=== PATIENT | female | born 1955 | race Caucasian/White ===

== ENCOUNTER 2019-07-23 05:36 | Outpatient (CLI) | payer OTHER ==
[~2019-07-23] VITALS: Ht 165.1 cm; Wt 95.3 kg
[2019-07-24] MEDS ORDERED: LEVO150T6 PO (09:00)
[2019-07-24] MEDS ORDERED: ESTR1TAB24 PO (09:00)
[2019-07-24] MEDS ORDERED: LOVA20TA2 PO (09:00)
== END 2019-07-23 16:00 | disposition home or self-care (01) ==
LOC: PREOP 05:36
PROVIDERS: ATTEND Orthopaedic Surgery
DX: Z01.818 Encounter for other preprocedural examination (principal)

== ENCOUNTER 2019-07-25 08:22 | Day surgery (SDC) | payer OTHER ==
--- NOTE | 2019-07-17 14:24 | HISTORY AND PHYSICAL ---
DATE OF SERVICE: ADMISSION HISTORY AND PHYSICAL DATE OF ADMISSION: 07/25/2019. This will be for outpatient surgery on 07/25/2019, for left knee arthroscopy. HISTORY OF PRESENT ILLNESS: The patient is a 63-year-old female with progressively worsening left knee pain, swelling and popping. She reports pain with long periods where she sits with her knee flexed. She reports pain on the anterior medial aspect of her knee. She denies giving way. She has been treated with rest, ice, activity modifications, anti-inflammatories as well as injections with minimal benefit. Due to progressive symptoms, the patient has elected to proceed with surgical intervention. Radiographs do note some moderate degenerative change of the medial compartment. She understands that arthroscopy will not alleviate her arthritic symptoms, but can help with her mechanical symptoms. REVIEW OF SYSTEMS: No chest pain, no shortness of breath, no dysuria. PAST MEDICAL HISTORY: Hyperlipidemia, hypothyroidism, psoriasis. PRIMARY CARE PROVIDER: Dr. Clemens. MEDICATIONS: 1. Nystatin. 2. Estradiol. 3. Lovastatin. 4. Niacin. 5. Ibuprofen. 6. Levothyroxine. 7. Betamethasone. ALLERGIES: No known drug allergies. SOCIAL HISTORY: The patient drinks alcohol socially. Denies tobacco use. PHYSICAL EXAMINATION: GENERAL: The patient is well developed, well-nourished, in no acute distress. HEENT: Normocephalic, atraumatic. Pupils are equal, round, reactive to light. Oropharynx is clear. NECK: Supple, no lymphadenopathy. LUNGS: Clear to auscultation bilaterally. HEART: Regular rate and rhythm. ABDOMEN: Soft, nontender, nondistended. EXTREMITIES: Left knee demonstrates moderate effusions, tender along the medial joint line. She has pain medially with Beatrice's. There is no varus valgus laxity. Negative anterior and posterior drawer. She is tender along the medial femoral condyle as well. 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 PLAN: Left knee arthroscopy, partial medial meniscectomy and chondroplasty. The risks, benefits, options, ramifications and recovery have been discussed at length with the patient. She understands and wishes to proceed. Job ID: [id number] DocumentID: [id number] Dictated Date: 07/17/2019 13:03:05 Tax Compliance Agent Date: 07/17/2019 14:23:36 Dictated By: LILIANE HAMILTON MD
[~2019-07-25] VITALS: Ht 165.1 cm; Wt 95.3 kg
[2019-07-25] VITALS (11 sets, daily range): BP systolic 122–164; BP diastolic 74–98
[~2019-07-25 08:22] MED LIST: ESTR1TAB24 PO; LEVO150T6 PO; LOVA20TA2 PO
--- NOTE | 2019-07-25 08:29 | Progress Note-Pre Operative ---
Pre-Operative Progress Note H&P Reviewed The H&P was reviewed, patient examined and no changes noted. Date Seen by Provider: Jul 25, 2019 Time Seen by Provider: 08:28 Date H&P Reviewed: Jul 25, 2019 Time H&P Reviewed: 08:28 Pre-Operative Diagnosis: left knee medial meniscus tear and chondromalacia LILIANE HAMILTON MD Jul 25, 2019 08:29
--- NOTE | 2019-07-25 08:30 | Progress Note-Post Operative ---
Post-Operative Progess Note Surgeon (s)/Fund Accountant (s) Surgeon LILIANE HAMILTON MD Fund Accountant: Jerson Damian Pre-Operative Diagnosis left knee medial meniscus tear and chondromalacia Post-Operative Diagnosis left knee medial meniscus tear and chondromalacia of the medial femoral condyle and patella Procedure & Operative Findings Date of Procedure 07/25/19 Procedure Performed/Findings left knee arthroscopic partial medial meniscectomy and chondroplasty of the medial femoral condyle and patella Anesthesia Type GETA Estimated Blood Loss Estimated blood loss (mL): minimal Specimens/Packing Specimens Removed none Packing: none LILIANE HAMILTON MD Jul 25, 2019 08:30
[2019-07-25] MEDS ORDERED: ceFAZolin INJECTION 1,000 MG in WATER (STERILE) FOR INJECTION 10 ML IV ONE (08:45)
[2019-07-25] MEDS ORDERED: morphine PF (DURAMORPH) 10 MG/10 ML AMP ONE (08:51)
[2019-07-25] MEDS ORDERED: BUPIVACAINE 0.25% 30 ML (SENSORCAINE) VIAL ONE (08:51)
[2019-07-25] MEDS: LACTATED RINGERS 1,000 ML IV PRN ×2 (09:00→11:00)
[2019-07-25] MEDS ORDERED: HYDROcodone/APAP 7.5 MG/325 MG (LORTAB, LORCET PLUS) TABLET PO PRN (09:00)
[2019-07-25] MEDS ORDERED: fentaNYL INJECTION 100 MCG/2 ML AMP ONE (10:19)
[2019-07-25] MEDS ORDERED: MIDAZOLAM 2 MG/2 ML (VERSED) VIAL ONE (10:20)
[2019-07-25] MEDS ORDERED: LIDOCAINE PF 2% 5 ML (XYLOCAINE) VIAL ONE (10:48)
[2019-07-25] MEDS ORDERED: proPOfol 200 MG/20 ML (DIPRIVAN) VIAL IV ONE (10:48)
[2019-07-25] MEDS ORDERED: ONDANSETRON 4 MG/2 ML (SDV) Z0FRAN ONE (10:48)
[2019-07-25] MEDS ORDERED: DEXAMETHASONE 10 MG/ML (DECADRON) 1 ML VIAL ONE (10:48)
[2019-07-25] MEDS ORDERED: SEVOFLURANE (ULTANE) 15 ML INHAL SOLN ONE ×3 (10:48)
[2019-07-25] MEDS ORDERED: morphine INJ 10 MG/ML 1ML (SYR OR VIAL) ONE (11:18)
[2019-07-25] MEDS ORDERED: morphine INJ 10 MG/ML 1ML (SYR OR VIAL) IVP ONE (11:30)
[2019-07-25] MEDS ORDERED: ONDANSETRON 4 MG/2 ML (SDV) Z0FRAN IVP PRN (11:30)
--- NOTE | 2019-07-25 11:46 | Anesthesia-General Post-Op ---
General Patient Condition Mental Status/LOC: Same as Preop Cardiovascular: Satisfactory Nausea/Vomiting: Absent Respiratory: Satisfactory Pain: Controlled Complications: Absent Post Op Complications Complications None Follow Up Care/Instructions Patient Instructions None needed. Anesthesia/Patient Condition Patient Condition Patient is doing well, no complaints, stable vital signs, no apparent adverse anesthesia problems. No complications reported per nursing. GONZÁLEZ LALA CRNA Jul 25, 2019 11:46
--- NOTE | 2019-07-25 13:24 | Physical Therapy Ortho Eval ---
PT Orthopedic Evaluation Type of Surgery Knee Scope left side Prior Level of Function Current Living Status: Other Family Locomotion (Upon Admit): Independent Subjective Subjective Patient in bed pre tx, agrees to PT, has no complaints of pain at rest. Entry Into Home: Stairs With Railing Steps Into Home: 2 Steps Accessories: Railing Present Motor Control Motor Control: Motor Control WNL ROM left knee extension +2 degrees, flexion 70 degrees Transfer Transfers (B, C, W/C) (FIM): 7 Gait Gait Assistive Device: None Left Lower Extremity: Left Weight Bearing Status LLE: Weight Bearing/Tolerated Gait (FIM): 7 Distance: 200' Gait Level of Assist: 6 Summary/Comments Patient has a slight limp but otherwise ambulates independently. Patient also went up and down 1 step without an assistive device with SBA and cues for foot placement. Treatment Rendered Treatment: Therapeutic Exercises, Gait Train, Step Train Exercise Instruction: Quad Sets, Heel Slides, Ankle Pumps Assessment/Goals Goal Time Frame: 1 Visit Understands HEP: Yes Safe Ambulation: Yes Plan Treatment Plan: Discharge PT/Family Agrees to Plan: Yes Time Time In: 1305 Time Out: 1320 Total Billed Treatment Time: 15 Billed Treatment Time 1 visit EVL 15' DEAN MOSS PT Jul 25, 2019 13:24
--- NOTE | 2019-07-25 19:29 | OPERATIVE REPORT ---
DATE OF SERVICE: 07/25/2019 PREOPERATIVE DIAGNOSES: 1. Left knee medial meniscus tear. 2. Left knee chondromalacia of the medial femoral condyle. POSTOPERATIVE DIAGNOSES: 1. Left knee medial meniscus tear. 2. Left knee chondromalacia of the medial femoral condyle. 3. Left knee chondromalacia of the patella. PROCEDURES: 1. Left knee arthroscopic partial medial meniscectomy. 2. Left knee arthroscopic chondroplasty medial femoral condyle. 3. Left knee arthroscopic chondroplasty of the patella. SURGEON: Herbert Hamilton MD NETWORKING ADMINISTRATOR: ROB Flor, who assisted throughout the procedure and closed the incisions. ANESTHESIA: General endotracheal by Kayla Rivas CRNA. TOURNIQUET TIME: Not applicable. ESTIMATED BLOOD LOSS: Minimal. DRAINS: None. COMPLICATIONS: None. POSTOPERATIVE PLAN: Routine arthroscopy protocol. The patient was transferred to the recovery room awake and in stable condition. STATEMENT OF MEDICAL NECESSITY: The patient is a 63-year-old female with progressively worsening left medial knee pain, catching, locking and swelling. Radiographs did reveal moderate degenerative changes of her medial and patellofemoral compartments. The patient was tender along the medial joint line, it was felt to likely have a medial meniscus tear. She understands that arthroscopy would not alleviate her arthritic symptoms, but could help with her mechanical symptoms, which included catching and locking as well as swelling. PROCEDURE: After risks and benefits of procedure were discussed and questions were answered, an informed consent was signed and placed on chart. The operative site was confirmed in the preoperative holding area initialed by the surgeon. The patient was transferred to the operating room and after adequate levels of general endotracheal anesthetic were obtained, a timeout was called, confirming the operative site and examination under anesthesia was performed, which revealed range of motion of 0/2/130 with negative Indira, negative anterior and posterior drawer. No varus valgus laxity, negative pivot shift. The left lower extremity was prepped and draped in the usual sterile fashion. Knee joint was injected with 60 mL of fluid and a standard inferolateral portal was placed with the arthroscope under direct visualization, inferior medial portal was created. The menisci and cruciates carefully probed. The undersurface patella demonstrated grade III chondral flaps in the central area approximately 20 x 15 mm in size. The trochlea demonstrated grade I chondral softening with no unstable chondral flaps. The medial and lateral gutters were clear. The lateral compartment demonstrated no significant meniscal or chondral pathology. The ACL and PCL were intact. The medial compartment demonstrated grade IV chondral changes on the medial aspect of the tibial plateau and femoral condyle and adjacent 5 x 12 areas. In addition, there were grade III chondral flaps at the periphery of this lesion on the femoral condyle. The medial meniscus demonstrated complex tear of the posterior horn and body involving approximately 1/2 posterior horn and body. The undersurface of the patella was debrided with the unstable chondral flaps. The scope was redirected into the medial compartment where the unstable chondral flaps in the medial femoral condyle and the unstable medial meniscus tear were debrided back to a stable edge. The meniscus was carefully probed with no further tearing or instability noted. The knee joint was copiously irrigated. The portal sites were closed with 4-0 nylon in aseptic fashion. The knee was injected with Duramorph. The portal sites were infiltrated with plain Marcaine. A soft dressing was applied and the patient was transferred to the recovery room awake and in stable condition. Job ID: [id number] DocumentID: [id number] Dictated Date: 07/25/2019 11:06:02 Respite Care Provider Date: 07/25/2019 19:29:04 Dictated By: HERBERT HAMILTON MD
== END 2019-07-25 13:24 | disposition home or self-care (01) ==
LOC: SDC 08:22
PROVIDERS: ATTEND Orthopaedic Surgery
DX: M23.222 Derangement of posterior horn of medial meniscus due to old tear or injury, left knee (principal); M94.262 Chondromalacia, left knee; E78.5 Hyperlipidemia, unspecified; E03.9 Hypothyroidism, unspecified; L40.9 Psoriasis, unspecified; Z87.891 Personal history of nicotine dependence; Z79.899 Other long term (current) drug therapy; Z79.52 Long term (current) use of systemic steroids
CPT/HCPCS: 87081

== ENCOUNTER 2019-09-17 14:30 | Outpatient (RCR) | payer OTHER | END 2019-09-19 | disposition home or self-care (01) | PROVIDERS: ATTEND Nurse Practitioner | DX: M17.12 Unilateral primary osteoarthritis, left knee (principal) ==

== ENCOUNTER 2019-09-20 13:54 | Outpatient (RCR) | payer OTHER | END 2019-09-20 14:31 | disposition home or self-care (01) | PROVIDERS: ATTEND Nurse Practitioner | DX: M17.12 Unilateral primary osteoarthritis, left knee (principal) ==

== ENCOUNTER 2019-12-03 09:26 | Outpatient (CLI) | payer OTHER ==
[~2019-12-03] VITALS: Ht 165 cm; Wt 97.5 kg
[2019-12-03] MEDS ORDERED: NIAC500T24 PO (09:48)
[2019-12-03] MEDS ORDERED: OMEG10005 PO (09:48)
[2019-12-03 09:50] VITALS: BP 138/84
[2019-12-03 10:16] LABS: BASOPHILS % (AUTO) 0 % (0-10); EOSINOPHILS # (AUTO) 0.5 10^3/uL (0.0-0.3); EOSINOPHILS % (AUTO) 6 % (0-10); HEMATOCRIT 37 % (35-52); HEMOGLOBIN 12.1 G/DL (11.5-16.0); LYMPHOCYTES # (AUTO) 1.9 X 10^3 (1.0-4.0); LYMPHOCYTES % (AUTO) 25 % (12-44); MEAN CORPUSCULAR HEMOGLOBIN 29 PG (25-34); MEAN CORPUSCULAR HGB CONC 33 G/DL (32-36); MEAN CORPUSCULAR VOLUME 89 FL (80-99); MEAN PLATELET VOLUME 9.6 FL (7.4-10.4); MONOCYTES # (AUTO) 0.5 X 10^3 (0.0-1.0); MONOCYTES % (AUTO) 7 % (0-12); NEUTROPHILS # (AUTO) 4.6 X 10^3 (1.8-7.8); NEUTROPHILS % (AUTO) 61 % (42-75); PLATELET COUNT 303 10^3/uL (130-400); WHITE BLOOD COUNT 7.4 10^3/uL (4.3-11.0)
[2019-12-03 10:20] LABS: BILIRUBIN,URINE NEGATIVE (NEGATIVE); CLARITY,URINE CLEAR; COLOR,URINE YELLOW; GLUCOSE, URINE (UA) NEGATIVE (NEGATIVE); KETONES,URINE NEGATIVE (NEGATIVE); LEUKOCYTE ESTERASE ,URINE NEGATIVE (NEGATIVE); NITRITE,URINE NEGATIVE (NEGATIVE); PROTEIN,URINE NEGATIVE (NEGATIVE)
[2019-12-03 10:28] LABS: BACTERIA,URINE TRACE /HPF; PROTHROMBIN TIME PATIENT 13.4 SEC (12.2-14.7); SQUAMOUS EPITHELIAL CELL,UR RARE /HPF
[2019-12-03 10:34] LABS: ALANINE AMINOTRANSFERASE 12 U/L (0-55); ALBUMIN 4.2 GM/DL (3.2-4.5); ALKALINE PHOSPHATASE 71 U/L (40-136); BILIRUBIN,TOTAL 0.4 MG/DL (0.1-1.0); BUN/CREATININE RATIO 20; CARBON DIOXIDE 22 MMOL/L (21-32); CHLORIDE 107 MMOL/L (98-107); GFR ESTIMATED > 60; GLUCOSE 165 MG/DL (70-105); POTASSIUM 3.7 MMOL/L (3.6-5.0); SODIUM 139 MMOL/L (135-145); TOTAL PROTEIN 6.9 GM/DL (6.4-8.2)
[2019-12-03 10:51] LABS: ERYTHROCYTE SEDIMENTATION RATE 14 MM/HR (0-30)
--- NOTE | 2019-12-03 11:19 | Diagnostic Imaging Report ---
INDICATION: Preop for knee replacement. TIME OF EXAM: 10:28 AM No prior studies are available for comparison. The heart size is normal. The pulmonary vascularity is unremarkable. The lungs are clear. No infiltrate, effusion or pneumothorax is detected. IMPRESSION: No acute cardiopulmonary process is detected. Dictated by: Dictated on workstation # [id number]
== END 2019-12-03 15:00 | disposition home or self-care (01) ==
LOC: PREOP 09:26
PROVIDERS: ATTEND Orthopaedic Surgery
DX: Z01.818 Encounter for other preprocedural examination (principal); M17.12 Unilateral primary osteoarthritis, left knee; R53.83 Other fatigue
CPT/HCPCS: 36415; 71046; 80053; 81000; 85025; 85610; 85652; 86850; 86900; 86901; 87081; 93005

== ENCOUNTER 2019-12-12 07:31 | Inpatient (IN) | payer OTHER ==
--- NOTE | 2019-12-04 08:45 | HISTORY AND PHYSICAL ---
DATE OF SERVICE: Date of service, date of surgery, date of admission will be 12/12/2019 for left total knee arthroplasty. The patient will require regular inpatient admission due to comorbidities, pain management, gait abnormalities and weakness. HISTORY OF PRESENT ILLNESS: The patient is a 63-year-old female with longstanding progressive left knee pain. She has undergone treatment with multiple injections as well as arthroscopy without relief. She has known grade IV chondral loss in her medial and patellofemoral compartments with significant degenerative changes of the lateral compartment. Due to functional impairment and failure to improve with conservative measures, the patient elected to proceed with surgical intervention. REVIEW OF SYSTEMS: No chest pain, no shortness of breath, no dysuria. PAST MEDICAL HISTORY: Hyperlipidemia, hypothyroidism, psoriasis. PAST SURGICAL HISTORY: Left knee arthroscopy. FAMILY HISTORY: Significant for congestive heart failure. PRIMARY CARE PROVIDER: Dr. Clemens. MEDICATIONS: Nystatin, estradiol, lovastatin, niacin, ibuprofen, levothyroxine, betamethasone, hydrocodone. ALLERGIES: No known drug allergies. SOCIAL HISTORY: The patient denies tobacco use. Drinks alcohol socially. PHYSICAL EXAMINATION: GENERAL: The patient is well-developed, well-nourished, in no acute distress. HEENT: Normocephalic, atraumatic. Pupils are equal, round and reactive to light. Oropharynx is clear. NECK: Supple, no lymphadenopathy. LUNGS: Clear to auscultation bilaterally. HEART: Regular rate and rhythm. ABDOMEN: Soft, nontender, nondistended. EXTREMITIES: The left knee demonstrates a slight effusion. There is no erythema or warmth. She ambulates with an antalgic gait. Range of motion is 0/2/120. There is no varus valgus laxity. Negative anterior and posterior drawer. She is tender along the medial femoral condyle and has pain medially with Beatrice's. IMPRESSION: Severe left knee osteoarthritis, unresponsive to conservative measures. PLAN: Left total knee arthroplasty. The risks, benefits, options, ramifications and recovery were discussed at length with the patient. She understands and wishes to proceed. Job ID: [id number] DocumentID: [id number] Dictated Date: 11/22/2019 11:33:49 Rental Sales Agent Date: 11/22/2019 11:51:58 Dictated By: LILIANE HAMILTON MD
[2019-12-12] VITALS (11 sets, daily range): BP systolic 133–148; BP diastolic 78–94
[~2019-12-12] VITALS: Ht 165 cm; Wt 97.5 kg
[~2019-12-12 07:31] MED LIST changes: +BUPIVACAINE 0.5% 30 ML (SENSORCAINE) VIAL ONE; +LIDOCAINE PF 2% 5 ML (XYLOCAINE) VIAL ONE; +MIDAZOLAM 2 MG/2 ML (VERSED) VIAL ONE; +NIAC500T24 PO; +OMEG10005 PO; +fentaNYL INJECTION 100 MCG/2 ML AMP ONE
[2019-12-12] MEDS ORDERED: CEFUROXIME INJECTION 1,500 MG in WATER (STERILE) FOR INJECTION 15 ML IV ONE (07:45)
[2019-12-12] MEDS ORDERED: INTRA-ARTICULAR IU ONE ×5 (08:00)
[2019-12-12] MEDS: LACTATED RINGERS 1,000 ML IV PRN ×2 (08:34→09:59)
[2019-12-12] MEDS ORDERED: SEVOFLURANE (ULTANE) 15 ML INHAL SOLN ONE ×2 (08:37→10:37)
[2019-12-12] MEDS ORDERED: proPOfol 200 MG/20 ML (DIPRIVAN) VIAL IV ONE (08:37)
[2019-12-12] MEDS ORDERED: TRANEXAMIC ACID 100 MG/ML 10 ML INJECTION IV ONE (09:09)
[2019-12-12] MEDS ORDERED: ACETAMINOPHEN 325 MG TABLET PO PRN (09:15)
[2019-12-12] MEDS ORDERED: ONDANSETRON 4 MG/2 ML (SDV) Z0FRAN IVP PRN ×2 (09:15→11:15)
[2019-12-12] MEDS ORDERED: morphine PCA 100 MG/100 ML BAG IV PRN (09:15)
[2019-12-12] MEDS ORDERED: diphenhydrAMINE 50 MG/ML INJ (BENADRYL) IVP PRN (09:15)
--- NOTE | 2019-12-12 09:21 | Progress Note-Pre Operative ---
Pre-Operative Progress Note H&P Reviewed The H&P was reviewed, patient examined and no changes noted. Date Seen by Provider: Dec 12, 2019 Time Seen by Provider: 09:21 Date H&P Reviewed: Dec 12, 2019 Time H&P Reviewed: 09:21 Pre-Operative Diagnosis: left knee primary osteoarthritis LILIANE HAMILTON MD Dec 12, 2019 09:21
--- NOTE | 2019-12-12 09:22 | Progress Note-Post Operative ---
Post-Operative Progess Note Surgeon (s)/Oven Loader (s) Surgeon LILIANE HAMILTON MD Oven Loader: Jerson Damian Pre-Operative Diagnosis left knee primary osteoarthritis Post-Operative Diagnosis left knee primary osteoarthiris Procedure & Operative Findings Date of Procedure 12/12/19 Procedure Performed/Findings left total knee arthroplasty Anesthesia Type GETA Estimated Blood Loss Estimated blood loss (mL): minimal Specimens/Packing Specimens Removed none Packing: none LILIANE HAMILTON MD Dec 12, 2019 09:22
--- NOTE | 2019-12-12 09:25 | D/C HH Face to Face Order ---
D/C Face to Face Orders Reconcile Patient Problems Problems Reviewed?: Yes Instructions for Patient Via [facility], Patient Instructions/FollowUp: three weeks Physician to follow Patient: three weeks Discharge Diet for Home: Regular Diet Patient Data-Allergies,Ht & Wt Patient Allergies: Coded Allergies: No Known Drug Allergies (Unverified , 12/03/19) Height (Feet): 5 Height (Inches): 5.00 Weight (Pounds): 210 Weight (Ounces): 0.0 Home Health Need/Face to Face Date of Face to Face: Dec 12, 2019 Clinical Findings: Instability, Muscle weakness, Pain with ambulation, Unsteady gait I have seen Pt [id number]: Yes Discharged To: Home Diagnosis/Conditions: left total knee arthroplasty Patient is Homebound due to: Kathryn fall risk due to instabilty, Muscle weakness, Pain w/ambulation Homebound Status Due to the above stated illness, injury or surgical procedure (medical condition or diagnosis) and associated clinical findings, the patient is homebound because of his/her inability to leave home except with aid of a supportive device and/or person AND leaving the home requires a considerable and taxing effort or is medically contraindicated. Pt req the following assistanc: Walker Home Health Nursing Orders Home Health Services Order: Physical Therapy-Evaluate & Treat DC left knee hanny and apply steri strips 12/26/19 Home Health Infusion Therapy Line Start Date: Dec 12, 2019 Certify Stmt I certify that this patient is under my care and that I, a nurse practitioner or a physician; a bakery assistant working with me, had a face to face encounter that - meets the physician face to face encounter requirements with this patient as dated. LILIANE HAMILTON MD Dec 12, 2019 09:25
[2019-12-12] MEDS ORDERED: morphine INJ 10 MG/ML 1ML (SYR OR VIAL) ONE (11:09)
[2019-12-12] MEDS ORDERED: morphine INJ 10 MG/ML 1ML (SYR OR VIAL) IVP ONE (11:15)
[2019-12-12] MEDS ORDERED: HYDROmorphone 2 MG/ML VIAL (DILAUDID) IV ONE (11:15)
--- NOTE | 2019-12-12 12:52 | Diagnostic Imaging Report ---
EXAMINATION: Left knee at 11:13 AM. INDICATION: Post op. TECHNIQUE/COMPARISON: AP and lateral views of the left knee were received from the OR. There are no prior studies available for comparison. FINDINGS: There has been a recent total knee arthroplasty procedure. The orthopedic hardware appears to be in good position. There is gas in the soft tissues anterior to the knee joint and skin hanny are evident. There is no fracture or acute bony abnormality appreciated. IMPRESSION: Stable post operative left knee. Dictated by: Dictated on workstation # [id number]
--- NOTE | 2019-12-12 13:24 | Progress Note ---
Standard Progress Note Progress Notes/Assess & Plan Date Seen by a Provider: Dec 12, 2019 Time Seen by a Provider: 13:22 Progress/Assessment & Plan post op check no complaints Radiographs--HW well postioned without fracture LLE--2 plus DP pulse with brisk cap refill, Intact DF and PF of toes and ankle with intact sensation to light touch throughout s/p LTKA mobilize as able LILIANE HAMILTON MD Dec 12, 2019 13:24
[2019-12-12] MEDS: NS IV 1000 ML 1,000 ML IV SCH ×2 (13:55→23:25)
--- NOTE | 2019-12-12 14:33 | Physical Therapy Evaluation ---
PT Evaluation-General Medical Diagnosis Admission Date Dec 12, 2019 at 07:31 Medical Diagnosis: Left TKA Onset Date: Dec 12, 2019 Therapy Diagnosis Therapy Diagnosis: impaired mobility, strength, endurance, ROM Height/Weight Height (Feet): 5 Height (Inches): 5.00 Weight (Pounds): 210 Weight (Ounces): 0.0 Precautions Precautions/Isolations: Standard Precautions Weight Bear Status Left Lower Extremity: Left Weight Bearing/Tolerated Referral Physician: Rickie Reason for Referral: Evaluation/Treatment Medical History Additional Medical History Hyperlipidemia, hypothyroidism, psoriasis. Reviewed History: Yes Social History Home: Single Level Current Living Status: Other Family (Sister) Entry Into Home: Stairs With Railing PT Steps Into Home: 2 PT Steps Inside Home: 0 Prior Prior Level of Function SCALE: Activities may be completed with or without assistive devices. 5-Kxgprzysoh-zbrlloy completes the activity by him/herself with no assistance from a helper. 5-Set-up or Clean-up Assistance-helper sets up or cleans up; patient completes activity. [place] assists only prior to or following the activity. 4-Supervision or Touching Assistance-helper provides verbal cues and/or touching/steadying and/or contact guard assistance as patient completes activity. Assistance may be provided throughout the activity or intermittently. 3-Partial/Moderate Assistance-helper does LESS THAN HALF the effort. [place] lifts, holds or supports trunk or limbs, but provides less than half the effort. 2-Substantial/Maximal Assistance-helper does MORE THAN HALF the effort. [place] lifts or holds trunk or limbs and provides more than half the effort. 5-Dpkvyaybq-ahkvmb does ALL the effort. Patient does none of the effort to complete the activity. Or, the assistance of 2 or more helpers is required for the patient to complete the activity. If activity was not attempted, code reason: 7-Patient Refused. 9-Not Applicable-not attempted and the patient did not perform the activity be fore the current illness, exacerbation or injury. 10-Not Attempted due to Environmental Limitations-(lack of equipment, weather restraints, etc.). 88-Not Attempted due to Medical Conditions or Safety Concerns. Bed Mobility: 6 Transfers (B,C,W/C): 6 Gait: 6 Stairs: 6 Indoor Mobility (Ambulation): Independent Stairs: Independent PT Evaluation-Current Subjective Patient is lethargic and unable to stay awake. Patient states she would not be safe to stand up and walk. Patient does agree to exercises. Pt/Family Goals to be independent at home Objective Patient Orientation: Normal For Age Attachments: Oxygen, Polar Pack, IV ROM/Strength ROM Lower Extremities Left knee 70 degrees of flexion and lacking 8 degrees of extension. Strength Lower Extremities LLE expected post-surgical weakness. Integumentary/Posture Integumentary See nursing notes. Bowel Incontinence: No Bladder Incontinence: No Sensory Vision: Functional Hearing: Functional Sensation Right Lower Extremit: Intact Sensation Left Lower Extremity: Intact Transfers Roll Left to Right (QC): 88 Sit to Lying (QC): 88 Lying to Sitting/Side of Bed(Q: 88 Sit to Stand (QC): 88 Chair/Isy-bk-Nlhgj Xfer(QC): 88 Gait Does the Patient Walk?: No and Walking Goal IS indicated Walk 10 feet (QC): 88 Walk 50 ft with 2 Turns(QC): 88 Walk 150 ft (QC): 88 Walking 10ft/uneven surface-QC: 8 Treatment LLE exercises x10: ankle pumps, heel slides, quad sets, SAQ, SLR Assessment/Needs Patient was not able to safely sit to EOB or stand and ambulate at this time due to fatigue. While performing exercises patient struggled to keep eyes open. Patient will benefit from skilled therapy to reach maximum LOF. CPM placed on pa tient and set to patient's leg and set to 60/-2 Rehab Potential: Good PT Chemical Handler Goals Prison Goals PT Prison Goals Time Frame: Dec 19, 2019 Roll Left & Right (QC): 6 Sit to Lying (QC): 6 Lying-Sitting on Side/Bed(QC): 6 Sit to Stand (QC): 6 Chair/Fni-sy-Iwfcm Xfer(QC): 6 Does the Patient Walk: Yes Walk 10 feet (QC): 6 Walk 50ft with 2 Turns (QC): 6 Walk 150 ft (QC): 6 PT Plan Problem List Problem List: Activity Tolerance, Functional Strength, Safety, Balance, Gait, Transfer, Bed Mobility, ROM Treatment/Plan Treatment Plan: Continue Plan of Care Treatment Plan: Bed Mobility, Education, Functional Activity Srini, Functional Strength, Gait, Safety, Therapeutic Exercise, Transfers Treatment Duration: Dec 19, 2019 Frequency: 11 times per week Estimated Hrs Per Day: .25 hour per day Patient and/or Family Agrees t: Yes Safety Risks/Education Patient Education: Correct Positioning, Safety Issues Teaching Recipient: Patient, Family Teaching Methods: Demonstration, Discussion Response to Teaching: Reinforcement Needed Discharge Recommendations Plan Patient will perform bed mobility and transfer training, balance and endurance training, functional strengthening, stair training, gait training, and education, to improve functional mobility and independence at home. Therapy Discharge Recommendati: Home & Family Time/GCodes Time In: 1350 Time Out: 1410 Total Billed Treatment Time: 20 Total Billed Treatment 1 visit EVM (20 minutes) DEAN MOSS PT Dec 12, 2019 14:33
--- NOTE | 2019-12-12 14:42 | Consultation - Hospitalist ---
HPI History of Present Illness: HPI/Chief Complaint patient is 64-year-old male past medical history of hypothyroidism was admitted following total knee arthroplasty under the care of after his food. She reports her pain is well-controlled. She is just waking up on anesthesia but has worked with physical therapy already. She is attempting to eat. She reports having hypothyroidism but is unsure of her dose of medication. I am consulted for medical management. Date Seen 12/12/19 Attending Physician Herbert Geronimo MD PCP Jonathan Clemens MD Referring Physician Date of Admission Dec 12, 2019 at 07:31 Home Medications & Allergies Home Medications Reviewed patient Home Medication Reconciliation performed by pharmacy medication reconciliations reliability technician and/or nursing. Patients Allergies have been reviewed. Allergies Allergies Coded Allergies No Known Drug Allergies (Unverified12/03/19) Past Qwvnffq-Dwoxim-Zsrgal Hx Past Med/Social Hx: Reviewed Nursing Past Med/Soc Hx Patient Social History Alcohol Use: Occasionally Uses Recreational Drug Use: No Smoking Status: Former Smoker Former Smoker, Quit: Dec 03, 1999 Type Used: Cigarettes 2nd Hand Smoke Exposure: No Physical Abuse Screen: No Sexual Abuse: No Recent Foreign Travel: No Contact w/other who traveled: No Recent Hopitalizations: No Recent Infectious Disease Expo: No Immunizations Up To Date Date of Influenza Vaccine: Aug 20, 2019 Seasonal Allergies Seasonal Allergies: Yes Past Medical History Surgeries: Ear Surgery, Hysterectomy Currently Using CPAP: No Currently Using BIPAP: No Sexually Transmitted Disease: No HIV/AIDS: No Musculoskeletal: Arthritis Endocrine: Hypothyroidsim Loss of Vision: Denies Hearing Impairment: Denies Skin/Integumentary: Psoriasis History of Blood Disorders: No Adverse Reaction to Blood Norris: No (N/A) Family History Reviewed Nursing Family Hx Review of Systems Constitutional: no symptoms reported EENTM: no symptoms reported Respiratory: no symptoms reported Cardiovascular: no symptoms reported Gastrointestinal: no symptoms reported Genitourinary: no symptoms reported Musculoskeletal: no symptoms reported Skin: no symptoms reported Psychiatric/Neurological: No Symptoms Reported Physical Exam Physical Exam Vital Signs Vital Signs - First Documented Capillary Refill : Less Than 3 Seconds Height, Weight, BMI Height: 5'5.00" Weight: 210lbs. 0.0oz. [id number]; 35.81 BMI Method: General Appearance: No Apparent Distress, Other (bald, absent eyebrows) Respiratory: Lungs Clear, No Accessory Muscle Use, No Respiratory Distress Cardiovascular: Regular Rate, Rhythm, No Murmur Gastrointestinal: Normal Bowel Sounds, Non Tender, Soft Extremity: Other (left leg in CPM with emre hose in place) Neurologic/Psychiatric: Alert, Oriented x3, Normal Mood/Affect Results Results/Procedures Labs Laboratory Tests 12/12/19 07:40 Patient resulted labs reviewed. Assessment/Plan Assessment and Plan Assess & Plan/Chief Complaint Left knee osteoarthritis s/p TKA Management per primary PT/OT Pain regimen Bowel regimen Lovenox Hypothyroidism Resume home supplement HLD resume home statin will follow prn, call if needed. Diagnosis/Problems Diagnosis/Problems (1) Osteoarthritis of left knee BERYL JULES MD Dec 12, 2019 14:42
--- NOTE | 2019-12-12 16:27 | OPERATIVE REPORT ---
DATE OF SERVICE: 12/12/2019 PREOPERATIVE DIAGNOSIS: Left knee primary osteoarthritis. POSTOPERATIVE DIAGNOSIS: Left knee primary osteoarthritis. PROCEDURE: Left total knee arthroplasty. SURGEON: Herbert Hamilton MD STONECUTTER: Jerson Damian, who assisted throughout the procedure and closed the incision. ANESTHESIA: General endotracheal. TOURNIQUET TIME: Approximately 65 minutes at 300 mmHg. ESTIMATED BLOOD LOSS: Minimal. DRAINS: None. COMPLICATIONS: None. POSTOPERATIVE PLAN: Routine total knee arthroplasty protocol. MATERIALS: Microport cemented size 4 femur, cemented size 4 tibia with 12 mm insert and cemented size 32 patellar button. The patient was transferred to the recovery room awake and stable condition. STATEMENT OF MEDICAL NECESSITY: The patient is a 64-year-old female with progressively worsening left knee pain. Radiographs revealed severe medial and patellofemoral arthrosis. She has undergone treatment with injections, anti-inflammatories as well as arthroscopy due to functional impairment. She had progressive functional impairment. Because of this, the patient elected to proceed with surgical intervention. DESCRIPTION OF PROCEDURE: After risks and benefits of procedure were discussed and questions were answered, informed consent was signed and placed on chart, the operative site was confirmed in the preoperative holding area initialed by the surgeon. The patient was transferred to the operating room and after adequate levels of general endotracheal anesthetic were obtained, a timeout was called, confirming the operative site. The left lower extremity was prepped and draped in the usual sterile fashion. The knee joint was prepped and draped in the usual sterile fashion with the leg elevated and the knee flexed, tourniquet was inflated to 300 mmHg. Standard anterior approach was utilized. Hemostasis was obtained with cautery. Medial parapatellar arthrotomy was performed leaving 1 cm cuff on the patella for later reattachment. A portion of the fat pad was resected. Subperiosteal release was performed on the proximal medial tibia, being careful stay on the bony surface. The ACL was resected. Intramedullary guide was passed into the femur and the distal cutting block was placed. Distal cut was made. The femur sized to a size 4. The forefoot cutting block was placed parallel to the epicondylar axis and cuts were made from posterior to anterior. Subperiosteal release was then carefully performed on the posterior distal femur, being careful stay on the bony surface. The intramedullary guide was then passed into the tibia. The cutting block was placed and drop karthik transected the intermalleolar axis and the cut was made. The four baseplate was placed. The drop karthik again transected the intermalleolar axis. The tibia was prepared with the drill and keel punch. The femoral trial was placed and trochlear cut was made. Using the freehand technique, 10 mm was resected off the undersurface of the patella. The peg guide was placed and the peg holes were drilled. The trials were inserted with 12 mm insert. Full extension was easily obtained. There was 120 degrees of flexion with gravity. There is no varus valgus laxity. Negative anterior and posterior drawer. The patella tracked well. The trials were removed. The joint was copiously irrigated with pulse lavage. The bone ends were irrigated and dried. The tibial baseplate was cemented into position. Excessive cement was removed. The superior surface was irrigated and dried and the polyethylene insert was placed. Distal femur was irrigated and dried and the femoral prosthesis was cemented into position. Excessive cement was removed. The knee was brought in full extension until cement had cured. The undersurface of patella was irrigated and dried. The patellar button was cemented in position. Excessive cement was removed. Once cement had cured, the knee was taken through range of motion. Full extension was easily obtained under 20 degrees of flexion. Jo[place] was easily obtained. There was no anterior/posterior or medial/lateral laxity in flexion or extension. The joint was further irrigated with pulse lavage. Arthrotomy was closed with #2 Tevdek in fnfrvf-ye-ewqcm interrupted fashion. Knee was flexed. Patella tracked well with no undue tension at the repair site. Subcutaneous tissues were irrigated using total of 6 liters throughout the procedure. A 0 Vicryl was used to deep subcutaneous tissue, 2-0 Vicryl for the superficial subcutaneous tissue, hanny used on the skin. A soft dressing was applied. The tourniquet was deflated. The patient was transferred to the recovery room awake and stable condition. Job ID: [id number] DocumentID: [id number] Dictated Date: 12/12/2019 11:01:25 Noodle Catalyst Maker Date: 12/12/2019 16:26:59 Dictated By: HERBERT HAMILTON MD
[2019-12-12] MEDS ORDERED: CEFUROXIME INJECTION 750 MG in WATER (STERILE) FOR INJECTION 10 ML IV SCH (17:15)
[2019-12-12] MEDS: CEFUROXIME INJECTION 750 MG in WATER (STERILE) FOR INJECTION 10 ML IV SCH (18:13)
[2019-12-12] MEDS: SENNA W/DOCUSATE (SENOKOT S) TABLET PO SCH (20:09)
[2019-12-12] MEDS: SIMvastatin 10 MG (ZOCOR) TAB PO SCH (20:09)
[2019-12-13] MEDS: NS IV 1000 ML 1,000 ML IV SCH ×2 (00:21→09:49)
[2019-12-13 00:33] VITALS: BP 148/88
[2019-12-13] MEDS: CEFUROXIME INJECTION 750 MG in WATER (STERILE) FOR INJECTION 10 ML IV SCH (02:28)
[2019-12-13 04:31] VITALS: BP 126/79
[2019-12-13] MEDS: oxyCODONE/APAP 5/325MG (PERCOCET 5) TABLET PO PRN ×7 (06:39→21:00)
[2019-12-13] MEDS: MULTIVIT W/MINERALS TAB (THERAGRAN M) PO SCH (06:39)
--- NOTE | 2019-12-13 06:47 | Anesthesia-General Post-Op ---
General Patient Condition Mental Status/LOC: Same as Preop Cardiovascular: Satisfactory Nausea/Vomiting: Absent Respiratory: Satisfactory Pain: Controlled Complications: Absent Post Op Complications Complications None Follow Up Care/Instructions Patient Instructions None needed. Anesthesia/Patient Condition Patient Condition Patient is doing well, no complaints, stable vital signs, no apparent adverse anesthesia problems. No complications reported per nursing. GONZÁLEZ LALA CRNA Dec 13, 2019 06:47
[2019-12-13 06:57] LABS: HEMOGLOBIN 10.8 G/DL (11.5-16.0)
[2019-12-13 08:00] VITALS: BP 162/83
--- NOTE | 2019-12-13 08:08 | Progress Note ---
Standard Progress Note Progress Notes/Assess & Plan Date Seen by a Provider: Dec 13, 2019 Time Seen by a Provider: 08:07 Progress/Assessment & Plan post op check no complaints Radiographs--HW well postioned without fracture LLE--2 plus DP pulse with brisk cap refill, Intact DF and PF of toes and ankle with intact sensation to light touch throughout s/p LTKA mobilize as able Final Diagnosis no complaints Vital Signs Date Time Temp Pulse Resp B/P (MAP) Pulse Ox O2 Delivery O2 Flow Rate FiO2 12/13/19 05:23 16 12/13/19 04:31 36.9 86 20 126/79 (95) 90 Room Air 12/13/19 00:33 37.0 71 16 148/88 (108) 93 Room Air 12/12/19 21:00 Room Air 12/12/19 20:00 35.6 86 12 133/84 (100) Room Air 12/12/19 16:00 35.2 86 12 143/94 (110) 90 Room Air 12/12/19 12:10 Nasal Cannula 3 12/12/19 12:05 37.3 20 137/83 (101) 94 Nasal Cannula 3 12/12/19 12:00 Nasal Cannula 3 12/12/19 12:00 36.7 94 16 147/91 (109) 98 Nasal Cannula 3.00 12/12/19 11:50 20 137/83 (101) 94 Nasal Cannula 3 12/12/19 11:45 Nasal Cannula 3 12/12/19 11:40 20 142/85 (104) 93 Nasal Cannula 3 12/12/19 11:30 20 139/78 (98) 93 Simple Mask 5 12/12/19 11:30 Simple Mask 5 12/12/19 11:20 20 148/82 (104) 99 Simple Mask 3 12/12/19 11:15 Simple Mask 6 12/12/19 11:10 20 146/84 (104) 98 Simple Mask 6 12/12/19 11:01 Simple Mask 6 12/12/19 11:01 37.3 20 143/86 (105) 100 Simple Mask 6 I & O 12/13/19 07:00 Intake Total 1885 ml Output Total 1800 ml Balance 85 ml Laboratory Tests Test 12/13/19 06:25 Range/Units Hemoglobin 10.8 L 11.5-16.0 G/DL Hematocrit 33 L 35-52 % LLE--dressing intact. No calf tenderness. Neg Kathi's s/p MILY PT/OT LILIANE HAMILTON MD Dec 13, 2019 08:08
[2019-12-13] MEDS: ESTRADIOL 1 MG TAB (ESTRACE) PO SCH (08:37)
[2019-12-13] MEDS: SENNA W/DOCUSATE (SENOKOT S) TABLET PO SCH ×2 (08:38→21:00)
[2019-12-13] MEDS: LEVOTHYROXINE 150 MCG (LEVOTHROID) TAB PO SCH (08:38)
[2019-12-13] MEDS: ENOXAPARIN 30 MG/0.3 ML (LOVENOX) SYR SC SCH ×2 (08:38→21:00)
[2019-12-13] MEDS: ASPIRIN E.C. 81 MG (ECOTRIN) TAB PO SCH (08:38)
--- NOTE | 2019-12-13 10:12 | Physical Therapy Daily Note ---
PT Daily Note-Current Subjective Patient agreeable to therapy at this time. Appearance Patient is in recliner with feet up, call light and bedside table within reach. Mental Status Patient Orientation: Normal For Age Attachments: Polar Pack, IV Transfers SCALE: Activities may be completed with or without assistive devices. 7-Fkshpclvws-loiczuc completes the activity by him/herself with no assistance from a helper. 5-Set-up or Clean-up Assistance-helper sets up or cleans up; patient completes activity. Dandridge assists only prior to or following the activity. 4-Supervision or Touching Assistance-helper provides verbal cues and/or touching/steadying and/or contact guard assistance as patient completes activity. Assistance may be provided throughout the activity or intermittently. 3-Partial/Moderate Assistance-helper does LESS THAN HALF the effort. Dandridge lif ts, holds or supports trunk or limbs, but provides less than half the effort. 2-Substantial/Maximal Assistance-helper does MORE THAN HALF the effort. Dandridge lifts or holds trunk or limbs and provides more than half the effort. 3-Covkdtxdv-lxsoie does ALL the effort. Patient does none of the effort to complete the activity. Or, the assistance of 2 or more helpers is required for the patient to complete the activity. If activity was not attempted, code reason: 7-Patient Refused. 9-Not Applicable-not attempted and the patient did not perform the activity before the current illness, exacerbation or injury. 10-Not Attempted due to Environmental Limitations-(lack of equipment, weather restraints, etc.). 88-Not Attempted due to Medical Conditions or Safety Concerns. Roll Left & Right (QC): 6 Lying to Sitting/Side of Bed(Q: 3 Sit to Stand (QC): 4 Chair/Tpy-gv-Jwseh Xfer(QC): 4 Toilet Transfer (QC): 4 Patient IND toileting hygiene. Weight Bearing Left Lower Extremity: Left Weight Bearing/Tolerated Gait Training Does the Patient Walk?: Yes Distance: 150' Walk 10 feet (QC): 4 Walk 50 ft with 2 Turns(QC): 4 Walk 150 ft (QC): 4 Gait Assistive Device: FWW Patient is shaky during ambulation initially. As she walks she becomes more steady. Wheelchair Training Does the Pt Use a Wheelchair?: No Exercises Supine Ex: Ankle pumps (10LLE), Quad Set (10LLE), Heel Slides (10LLE), Straight leg raise (10LLE) Supine Reps: 10 Treatments Exercises. Transfers. Ambulation. Assessment Current Status: Good Progress Patient is shaky initially during ambulation but becomes more steady as she walks. PT Trust Clerk Goals Trust Clerk Goals PT Trust Clerk Goals Time Frame: Dec 19, 2019 Roll Left & Right (QC): 6 Sit to Lying (QC): 6 Lying-Sitting on Side/Bed(QC): 6 Sit to Stand (QC): 6 Chair/Pks-ar-Jiwen Xfer(QC): 6 Does the Patient Walk: Yes Walk 10 feet (QC): 6 Walk 50ft with 2 Turns (QC): 6 Walk 150 ft (QC): 6 PT Plan Problem List Problem List: Activity Tolerance, Functional Strength, Safety, Balance, Gait, Transfer, Bed Mobility, ROM Treatment/Plan Treatment Plan: Continue Plan of Care Treatment Plan: Bed Mobility, Education, Functional Activity Srini, Functional Strength, Gait, Safety, Therapeutic Exercise, Transfers Treatment Duration: Dec 19, 2019 Frequency: 11 times per week Estimated Hrs Per Day: .25 hour per day Patient and/or Family Agrees t: Yes Safety Risks/Education Patient Education: Gait Training, Transfer Techniques Teaching Recipient: Patient Teaching Methods: Discussion Response to Teaching: Reinforcement Needed Time/GCodes Time In: 810 Time Out: 837 Total Billed Treatment Time: 27 Total Billed Treatment 1 visit EX 12 FA 15 PIPO WISE PT Dec 13, 2019 10:12
[2019-12-13 12:00] VITALS: BP 162/83
--- NOTE | 2019-12-13 14:00 | Occupational Therapy Eval ---
OT Evaluation-General/PLF Medical Diagnosis Admission Date Dec 12, 2019 at 07:31 Medical Diagnosis: Left TKA Onset Date: Dec 12, 2019 Therapy Diagnosis Therapy Diagnosis: Weakness Height/Weight Height (Feet): 5 Height (Inches): 5.00 Weight (Pounds): 210 Weight (Ounces): 0.0 Precautions Precautions/Isolations: Fall Prevention, Standard Precautions Safety Interventions: None Weight Bear Status Weight Bearing Restriction: Weight Bearing/Tolerated Referral Physician: Juanpablo Referral Reason: Activity Tolerance, Self Care, Evaluation/Treatment, Strengthening/ROM Medical History Additional Medical History Hyperlipidemia, psoriasis, hypothyroidism. Current History Pt. underwent elective left TKR. Reviewed History: Yes Social History Home: Single Level Current Living Status: Other Family (Sister) Entry Into Home: Stairs With Railing Steps Into Home: 2 Steps Inside Home: 0 ADL-Prior Level of Function SCALE: Activities may be completed with or without assistive devices. 4-Atqafusiol-jleacaj completes the activity by him/herself with no assistance from a helper. 5-Set-up or Clean-up Assistance-helper sets up or cleans up; patient completes activity. Coy assists only prior to or following the activity. 4-Supervision or Touching Assistance-helper provides verbal cues and/or touching/steadying and/or contact guard assistance as patient completes activity. Assistance may be provided throughout the activity or intermittently. 3-Partial/Moderate Assistance-helper does LESS THAN HALF the effort. Coy lifts, holds or supports trunk or limbs, but provides less than half the effort. 2-Substantial/Maximal Assistance-helper does MORE THAN HALF the effort. Coy lifts or holds trunk or limbs and provides more than half the effort. 4-Vacvqjeti-pmyeqc does ALL the effort. Patient does none of the effort to complete the activity. Or, the assistance of 2 or more helpers is required for the patient to complete the activity. If activity was not attempted, code reason: 7-Patient Refused. 9-Not Applicable-not attempted and the patient did not perform the activity before the current illness, exacerbation or injury. 10-Not Attempted due to Environmental Limitations-(lack of equipment, weather restraints, etc.). 88-Not Attempted due to Medical Conditions or Safety Concerns. ADL PLOF Comments Pt. was independent with daily tasks prior to this surgery. Pt. drives, works in kitchen at [employer]. She lives with her sister in [place]. She states that her sister is disabled, but is able to care for self. Self Care: Independent Functional Cognition: Independent DME/Equipment: Shower, Tub/Shower DME/Equipment Comments Pt. does not have a walker or shower chair. Occupation: Works in kitchen at [employer]-[address] Self: Yes OT Current Status Subjective Pt. reports 8/10 pain in knee but states that she is not using her TIRE SPOTTER. Nursing aware and assessing medication. Appearance Pt. up in chair. Agrees to work with OT. Mental Status/Objective Patient Orientation: Person, Place, Time, Situation Attachments: IV Current Upper Extremity ROM WFL Upper Extremity Strength WFL ADL-Treatment On/Off Footwear (QC): 2 (Pt. is unable to doff slipper socks while seated in chair.) Pt. declines ADLs at this time. Requests to lay back down as she is tired and in pain. Pt. stands with walker with CGA. Pt. able to transfer to bed and requires CGA for left LE placement. Pt. able to position self in bed. All needs are met. Polar ice pack applied, as well as SCDs. Pt. educated on AE and OT will bring this back for further education and independence with LE dressing. Pt. verbalizes understanding. Education OT Patient Education: Correct positioning, Modified ADL techniques, Progress toward Goal/Update tx plan, Purpose of tx/functional activities, Reviewed precautions, Rehab process, Transfer techniques Teaching Recipient: Patient Teaching Methods: Demonstration, Discussion Response to Teaching: Verbalize Understanding, Return Demonstration OT Skilled Nursing Goals Skilled Nursing Goals Time Frame: Dec 20, 2019 Eating (QC): 6 Oral Hygiene (QC): 6 Toileting Hygiene (QC): 6 Shower/Bathe Self (QC): 4 Upper Body Dressing (QC): 5 Lower Body Dressing (QC): 4 On/Off Footwear (QC): 4 toilet transfer (4) Additional Goals: 1-Demonstrate ADL Tasks, 2-Verbalize Understanding, 3- ImproveStrength/Srini 1=Demonstrate adherence to instructed precautions during ADL tasks. 2=Patient will verbalize/demonstrate understanding of assistive devices/modifications for ADL. 3=Patient will improve strength/tolerance for activity to enable patient to perform ADL's. OT Education/Plan Problem List/Assessment Assessment: Decreased Activ Tolerance, Impaired I ADL's, Impaired Self-Care Skills Discharge Recommendations Plan/Recommendations: Continue POC Therapy Discharge Recommendati: Home & Family, Post Acute OT Equpiment Recommendations-D/C: Bath Chair Comment Pt. will need walker and possibly hip kit after ADL training. Treatment Plan/Plan of Care Treatment,Training & Education: Yes Patient would benefit from OT for education, treatment and training to promote independence in ADL's, mobility, safety and/or upper extremity function for ADL's. Plan of Care: ADL Retraining, Functional Mobility, UE Funct Exercise/Act Treatment Duration: Dec 20, 2019 Frequency: 5 times per week Estimated Hrs Per Day: .25 hour per day Agreement: Yes Rehab Potential: Good Time/GCodes Start Time: 09:40 Stop Time: 10:00 Total Time Billed (hr/min): 20 Billed Treatment Time 1, ASHLEY MEEHAN OT Dec 13, 2019 14:00
--- NOTE | 2019-12-13 14:39 | Physical Therapy Daily Note ---
PT Daily Note-Current Subjective Patient agreeable to therapy at this time. Appearance Patient in bed with bedside table and call light within reach. Patient granddaughter present. Patient CPM on and setting 70/0. Mental Status Patient Orientation: Normal For Age Attachments: IV Transfers SCALE: Activities may be completed with or without assistive devices. 6-Gxaauutxym-kmicwmh completes the activity by him/herself with no assistance from a helper. 5-Set-up or Clean-up Assistance-helper sets up or cleans up; patient completes activity. Caret assists only prior to or following the activity. 4-Supervision or Touching Assistance-helper provides verbal cues and/or touching/steadying and/or contact guard assistance as patient completes act ivity. Assistance may be provided throughout the activity or intermittently. 3-Partial/Moderate Assistance-helper does LESS THAN HALF the effort. Caret lifts, holds or supports trunk or limbs, but provides less than half the effort. 2-Substantial/Maximal Assistance-helper does MORE THAN HALF the effort. Caret lifts or holds trunk or limbs and provides more than half the effort. 7-Mqoajwuzq-xzputz does ALL the effort. Patient does none of the effort to complete the activity. Or, the assistance of 2 or more helpers is required for the patient to complete the activity. If activity was not attempted, code reason: 7-Patient Refused. 9-Not Applicable-not attempted and the patient did not perform the activity before the current illness, exacerbation or injury. 10-Not Attempted due to Environmental Limitations-(lack of equipment, weather restraints, etc.). 88-Not Attempted due to Medical Conditions or Safety Concerns. Roll Left & Right (QC): 6 Sit to Lying (QC): 6 Lying to Sitting/Side of Bed(Q: 6 Sit to Stand (QC): 4 (CGA for safety) Toilet Transfer (QC): 6 (CGA for safety. Patient IND with toileting hygiene) Weight Bearing Left Lower Extremity: Left Weight Bearing/Tolerated Gait Training Does the Patient Walk?: Yes Distance: 200' Walk 10 feet (QC): 4 Walk 50 ft with 2 Turns(QC): 4 Walk 150 ft (QC): 4 Gait Assistive Device: FWW CGA for safety Wheelchair Training Does the Pt Use a Wheelchair?: No Exercises Supine Ex: Ankle pumps (10LLE), Quad Set (10LLE), Heel Slides (10LLE), Straight leg raise (10LLE) Treatments Ambulation. Bed mobility. LLE Exercises. Assessment Patient is stable during ambulation. Patient was able to move IND in bed without assistance in lifting her LLE. PT Quality Assurance Representative Goals Nursing Home Goals PT Nursing Home Goals Time Frame: Dec 19, 2019 Roll Left & Right (QC): 6 Sit to Lying (QC): 6 Lying-Sitting on Side/Bed(QC): 6 Sit to Stand (QC): 6 Chair/Qoh-ot-Xoasv Xfer(QC): 6 Does the Patient Walk: Yes Walk 10 feet (QC): 6 Walk 50ft with 2 Turns (QC): 6 Walk 150 ft (QC): 6 PT Plan Problem List Problem List: Activity Tolerance, Functional Strength, Safety, Balance, Gait, Transfer, Bed Mobility, ROM Treatment/Plan Treatment Plan: Continue Plan of Care Treatment Plan: Bed Mobility, Education, Functional Activity Srini, Functional Strength, Gait, Safety, Therapeutic Exercise, Transfers Treatment Duration: Dec 19, 2019 Frequency: 11 times per week Estimated Hrs Per Day: .25 hour per day Patient and/or Family Agrees t: Yes Safety Risks/Education Patient Education: Gait Training, Transfer Techniques Teaching Recipient: Patient Teaching Methods: Discussion Response to Teaching: Reinforcement Needed Time/GCodes Time In: 1322 Time Out: 1348 Total Billed Treatment Time: 26 Total Billed Treatment 1 visit GT 16 EX 10 PIPO WISE PT Dec 13, 2019 14:39
[2019-12-13 16:00] VITALS: BP 161/82
--- NOTE | 2019-12-13 19:56 | DISCHARGE SUMMARY ---
DATE OF SERVICE: DIAGNOSES: 1. Left knee primary osteoarthritis. 2. Hyperlipidemia. 3. Hypothyroidism. 4. Psoriasis. PROCEDURE: Left total knee arthroplasty. SUMMARY: The patient is a 64-year-old female who was admitted the day of a left total knee arthroplasty, which she underwent without complications. Postoperatively, she did well. At the time of discharge, her wound was clean and dry. She was tolerating diet well and tolerating pain with oral pain medication. CONDITION AT DISCHARGE: Good. DISCHARGE DIET: Regular. FOLLOWUP: in three weeks. DISCHARGE MEDICATIONS: Home medications plus aspirin as well as Percocet as needed for pain. DIET: Regular. Job ID: [id number] DocumentID: [id number] Dictated Date: 12/13/2019 16:36:19 Head Of Drama Date: 12/13/2019 19:56:00 Dictated By: LILIANE HAMILTON MD
[2019-12-13 20:00] VITALS: BP 148/82
[2019-12-13] MEDS: SIMvastatin 10 MG (ZOCOR) TAB PO SCH (21:00)
[2019-12-14 00:25] VITALS: BP 146/71
[2019-12-14] MEDS: oxyCODONE/APAP 5/325MG (PERCOCET 5) TABLET PO PRN ×2 (03:15→06:03)
[2019-12-14 04:25] VITALS: BP 176/81
[2019-12-14 05:57] LABS: HEMOGLOBIN 12.6 G/DL (11.5-16.0)
[2019-12-14] MEDS: MULTIVIT W/MINERALS TAB (THERAGRAN M) PO SCH (06:02)
--- NOTE | 2019-12-14 07:05 | Progress Note ---
Standard Progress Note Progress Notes/Assess & Plan Date Seen by a Provider: Dec 14, 2019 Time Seen by a Provider: 07:04 Progress/Assessment & Plan post op check no complaints Radiographs--HW well postioned without fracture LLE--2 plus DP pulse with brisk cap refill, Intact DF and PF of toes and ankle with intact sensation to light touch throughout s/p LTKA mobilize as able Final Diagnosis no complaints Vital Signs Date Time Temp Pulse Resp B/P (MAP) Pulse Ox O2 Delivery O2 Flow Rate FiO2 12/14/19 04:25 36.2 86 18 176/81 (112) 94 Room Air 12/14/19 00:25 36.0 90 18 146/71 (96) 97 Room Air 12/13/19 21:00 18 12/13/19 21:00 18 12/13/19 21:00 Room Air 12/13/19 20:00 36.4 92 20 148/82 (104) 93 Room Air 12/13/19 16:00 36.3 93 16 161/82 (108) 90 Room Air 12/13/19 12:54 36.9 12/13/19 12:00 36.9 76 18 162/83 (109) 94 Room Air 12/13/19 09:00 95 Room Air 12/13/19 08:00 36.9 76 18 162/83 (109) 94 Room Air I & O 12/14/19 07:00 Intake Total 1820 ml Output Total 800 ml Balance 1020 ml Laboratory Tests Test 12/14/19 05:25 Range/Units Hemoglobin 12.6 11.5-16.0 G/DL Hematocrit 39 35-52 % LLE--no calf tenderness. Neg Kathi's. Incision clean and dry s/p LTKA doing well DC home after PT today LILIANE HAMILTON MD Dec 14, 2019 07:05
[2019-12-14 08:00] VITALS: BP 169/95
[2019-12-14] MEDS: ENOXAPARIN 30 MG/0.3 ML (LOVENOX) SYR SC SCH (08:00)
--- NOTE | 2019-12-14 09:44 | Physical Therapy Daily Note ---
PT Daily Note-Current Subjective Patient agreeable to therapy at this time. Appearance Patient on toilet instructed to pull call light when finished. Mental Status Patient Orientation: Normal For Age Attachments: IV Transfers SCALE: Activities may be completed with or without assistive devices. 5-Xuupspcuqr-igdzndd completes the activity by him/herself with no assistance from a helper. 5-Set-up or Clean-up Assistance-helper sets up or cleans up; patient completes activity. [place] assists only prior to or following the activity. 4-Supervision or Touching Assistance-helper provides verbal cues and/or touching/steadying and/or contact guard assistance as patient completes activity. Assistance may be provided throughout the activity or intermittently. 3-Partial/Moderate Assistance-helper does LESS THAN HALF the effort. [place] lifts, holds or supports trunk or limbs, but provides less than half the effort. 2-Substantial/Maximal Assistance-helper does MORE THAN HALF the effort. [place] lifts or holds trunk or limbs and provides more than half the effort. 0-Xvrjsrvtg-qsvivz does ALL the effort. Patient does none of the effort to complete the activity. Or, the assistance of 2 or more helpers is required for the patient to complete the activity. If activity was not attempted, code reason: 7-Patient Refused. 9-Not Applicable-not attempted and the patient did not perform the activity before the current illness, exacerbation or injury. 10-Not Attempted due to Environmental Limitations-(lack of equipment, weather restraints, etc.). 88-Not Attempted due to Medical Conditions or Safety Concerns. Sit to Stand (QC): 6 Chair/Xmh-ao-Ufsvu Xfer(QC): 6 Toilet Transfer (QC): 6 Weight Bearing Left Lower Extremity: Left Weight Bearing/Tolerated Gait Training Does the Patient Walk?: Yes Distance: 300' Walk 10 feet (QC): 6 Walk 50 ft with 2 Turns(QC): 6 Walk 150 ft (QC): 6 Gait Assistive Device: FWW Patient IND during ambulation. PT push IV pole. Wheelchair Training Does the Pt Use a Wheelchair?: No Exercises Supine Ex: Ankle pumps (10LLE), Quad Set (10LLE), Heel Slides (10LLE), Straight leg raise (10LLE) Treatments LLE exercises, ambulation, transfer. Assessment Current Status: Good Progress Patient steady during ambulation. Patient used her own walker today and walked in tennis shoes. Patient preferred this. PT Vice President Of Customer Service Goals Long-Term Goals PT Vice President Of Customer Service Goals Time Frame: Dec 19, 2019 Roll Left & Right (QC): 6 Sit to Lying (QC): 6 Lying-Sitting on Side/Bed(QC): 6 Sit to Stand (QC): 6 Chair/Syl-gs-Ttuah Xfer(QC): 6 Does the Patient Walk: Yes Walk 10 feet (QC): 6 Walk 50ft with 2 Turns (QC): 6 Walk 150 ft (QC): 6 PT Plan Problem List Problem List: Activity Tolerance, Functional Strength, Safety, Balance, Gait, Transfer, ROM Treatment/Plan Treatment Plan: Discontinue PT, goals met Treatment Plan: Bed Mobility, Education, Functional Activity Srini, Functional Strength, Gait, Safety, Therapeutic Exercise, Transfers Treatment Duration: Dec 19, 2019 Frequency: 11 times per week Estimated Hrs Per Day: .25 hour per day Patient and/or Family Agrees t: Yes Safety Risks/Education Patient Education: Gait Training, Transfer Techniques Teaching Recipient: Patient Teaching Methods: Discussion Response to Teaching: Verbalize Understanding Discharge Recommendations Therapy Discharge Recommendati: Home & Family Time/GCodes Time In: 825 Time Out: 843 Total Billed Treatment Time: 18 Total Billed Treatment 1 visit FA 18 PIPO WISE PT Dec 14, 2019 09:44
[2019-12-14] MEDS: LEVOTHYROXINE 150 MCG (LEVOTHROID) TAB PO SCH (09:45)
[2019-12-14] MEDS: ASPIRIN E.C. 81 MG (ECOTRIN) TAB PO SCH (09:45)
[2019-12-14] MEDS: SENNA W/DOCUSATE (SENOKOT S) TABLET PO SCH (09:45)
[2019-12-14] MEDS: ESTRADIOL 1 MG TAB (ESTRACE) PO SCH (09:45)
[2019-12-14 10:40] VITALS: BP 169/95
== END 2019-12-14 10:40 | disposition home health service (06) | DRG 470 ==
LOC: 4TH 07:31 → CSD 12:22 → 4TH 16:12
PROVIDERS: ADMIT Orthopaedic Surgery; ATTEND Orthopaedic Surgery
PROC: 0SRD0J9 Replacement of Left Knee Joint with Synthetic Substitute, Cemented, Open Approach (ICD-10-PCS; principal; 2019-12-12 09:23)
DX: M17.12 Unilateral primary osteoarthritis, left knee (principal); E03.9 Hypothyroidism, unspecified; E78.5 Hyperlipidemia, unspecified; J30.2 Other seasonal allergic rhinitis; L40.9 Psoriasis, unspecified; Z87.891 Personal history of nicotine dependence
CPT/HCPCS: 36415; 73560; 82565; 85014; 85018; 86850; 86900; 86901; 94664

== ENCOUNTER 2020-02-19 09:20 | Outpatient (RCR) | payer OTHER ==
[~2020-02-19 09:20] MED LIST changes: -BUPIVACAINE 0.5% 30 ML (SENSORCAINE) VIAL ONE; -LIDOCAINE PF 2% 5 ML (XYLOCAINE) VIAL ONE; -MIDAZOLAM 2 MG/2 ML (VERSED) VIAL ONE; -fentaNYL INJECTION 100 MCG/2 ML AMP ONE
== END 2020-03-30 | disposition home or self-care (01) ==
PROVIDERS: ATTEND Orthopaedic Surgery
DX: Z47.1 Aftercare following joint replacement surgery (principal); Z96.652 Presence of left artificial knee joint

== ENCOUNTER → 2021-01-07 | Outpatient (CLI) | payer MEDICARE, OTHER ==
--- NOTE | 2021-01-07 16:33 | Diagnostic Imaging Report ---
INDICATION: Right knee pain. COMPARISON: None. FINDINGS: Three views of the right knee joint demonstrate no acute fracture or dislocation. No focal osseous lesions are seen. Mild osteoarthritic changes are noted and consist of small osteophyte formations. No significant joint effusion is seen. The surrounding soft tissue structures are unremarkable. There are no radiopaque foreign bodies. IMPRESSION: 1. No acute fractures or dislocations of the right knee joint. 2. Mild osteoarthritic changes. Dictated by: Dictated on workstation # [id number]
== END ==
LOC: RAD 15:20
PROVIDERS: ATTEND Nurse Practitioner
DX: M17.11 Unilateral primary osteoarthritis, right knee (principal)
CPT/HCPCS: 73562